=== PATIENT | male | born 1970 | race Caucasian/White ===

== ENCOUNTER 2017-05-16 11:45 | Emergency (ER) | payer OTHER ==
[~2017-05-16] VITALS: Ht 188 cm; Wt 77.5 kg
[~2017-05-16 11:45] MED LIST: BACTDS PO; BUPR300T48 PO; CEPH-443 PO; RISP2TAB93 PO
[2017-05-16 11:47] VITALS: Ht 188 cm; Wt 77.5 kg
[2017-05-16] MEDS ORDERED: SULF1TAB31 PO (12:56)
[2017-05-16] MEDS ORDERED: CEPH-443 PO (12:56)
[2017-05-16] MEDS ORDERED: CEFTRIAXONE 1 GM INJ IM ONE (13:00)
--- NOTE | 2017-05-16 13:13 | ERD ---
ER Documentation Chief Complaint Date/Time DATE: 05/16/17 TIME: 13:11 Chief Complaint bilat lower ext swelling x4days HPI 47-year-old male patient with no significant past medical history presents to the ED complaining of by bilateral lower feet redness that started 4 days ago after walking through the weeds. Reports that he got his feet tangled up in the weeds as he was trying to walk through. States that immediately he felt itching and pain sensation. Denies any chest pain, shortness of breath, wheezing, dyspnea on exertion, orthopnea, nausea, vomiting, fever, decreased sensation, loss of range of motion. Patient is ambulating without difficulty. ROS All systems reviewed and are negative except as per history of present illness. Medications Home Meds Active Scripts Cephalexin* (Keflex*) 500 Mg Capsule, 500 MG PO QID for 7 Days, CAP Prov:TREE MEDEL PA-C 05/16/17 Sulfamethoxazole/Trimethoprim* (Bactrim Ds* Tablet) 1 Each Tablet, 1 TAB PO BID for 7 Days, #14 TAB Prov:TREE MEDEL PA-C 05/16/17 Cephalexin* (Keflex*) 500 Mg Capsule, 500 MG PO QID for 14 Days, CAP Prov:MAGDI SANCHEZ DO 01/10/16 Sulfamethoxazole-Trimethoprim* (Bactrim* DS) 800-160 Mg Tab, 1 TAB PO BID for 14 Days, TAB Prov:MAGDI SANCHEZ DO 01/10/16 Reported Medications Risperidone* (Risperdal*) 2 Mg Tablet, 2 MG PO DAILY, TAB 01/10/16 Bupropion Hcl* (Wellbutrin XL*) 300 Mg Tab.sr.24h, 300 MG PO DAILY, TAB.SA 01/10/16 Allergies Allergies: Coded Allergies: No Known Allergy (Unverified , 01/12/14) PMhx/Soc History of Surgery: No Anesthesia Reaction: No Hx Neurological Disorder: No Hx Respiratory Disorders: No Hx Cardiac Disorders: No Hx Psychiatric Problems: No Hx Miscellaneous Medical Probl: No Hx Alcohol Use: No Hx Substance Use: Yes (heroin) Hx Tobacco Use: No Smoking Status: Never smoker Physical Exam Vitals Vital Signs Date Time Temp Pulse Resp B/P Pulse Ox O2 Delivery O2 Flow Rate FiO2 05/16/17 11:47 98.1 67 20 117/66 98 Physical Exam Const: Gtc-gfy-[id number], well-nourished. In no acute distress. Head: Atraumatic, normocephalic Eyes: Normal Conjunctiva without injection ENT: Normal external ear, nose and mouth. Neck: Full range of motion. No meningismus. Resp: Clear to auscultation bilaterally. No wheezing, rhonchi, rales, or crackles. No accessory muscle use. No retractions. Cardio: Regular rate and rhythm, no murmurs Skin: No petechiae or rashes Back: No midline tenderness. No CVA tenderness. Ext: No cyanosis, or edema. Cap refill less than 2 seconds. Distal pulses intact bilaterally. Bilateral feet erythema up to the ankle region with no edema noted. No purulent discharge. No fluctuance or induration. No bleeding noted. Full range of motion of bilateral lower and upper extremities with flexion extension. Patient is ambulating without difficulty. No lymphatic streaking. Neur: Awake and alert. Normal gait and coordination. Muscle strength 5/5. Sensation intact bilaterally. Psych: Normal Mood and Affect Results 24 hrs Current Medications Medications (Trade) Dose Ordered Sig/Marisela Route PRN Reason Start Time Stop Time Status Last Admin Dose Admin Ceftriaxone Sodium (Rocephin) 1 gm ONCE ONCE IM 05/16/17 13:00 05/16/17 13:01 DC 05/16/17 13:06 Procedures/MDM This is a 47-year-old male patient with a past medical history of abscesses and cellulitis presents to the ED complaining of bilateral feet redness that started 4 days ago. Patient is afebrile and nontoxic-appearing. Patient has normal vital signs. He was given his first dose of ceftriaxone here in the ED with improvement of his symptoms. My supervising physician, Dr. Torrez also evaluated patient at this time who agreed with the management and discharge plan. Patient likely has cellulitis. He is instructed to return to the ED in 2 days for a wound check. Low suspicion for scabies, SJS/TEN, erythema multiforme, sepsis, necrotizing fascitis, gangrene, meningococcemia or other emergent conditions. Patient's extremity symptoms have stabilized while they have been evaluated in the department and are appropriate for outpatient follow up. No evidence of fractures, dislocations, compartment syndrome, neurologic injury, vascular injury, open joint, open fracture, tendon laceration, septic arthritis, osteomyelitis, DVT, foreign body, or other emergent conditions. Discharge medications: Bactrim and Keflex Follow up with primary care physician in 1-2 days. Instructed patient to return to the ED sooner for any worsening symptoms. Patient's questions were answered. Patient understood and agreed with discharge plan. Patient discharged stable. Departure Diagnosis: Primary Impression: Cellulitis of both feet Condition: Stable Patient Instructions: Cellulitis Referrals: [facility] YOU HAVE RECEIVED A MEDICAL SCREENING EXAM AND THE RESULTS INDICATE THAT YOU DO NOT HAVE A CONDITION THAT REQUIRES URGENT TREATMENT IN THE EMERGENCY DEPARTMENT. FURTHER EVALUATION AND TREATMENT OF YOUR CONDITION CAN WAIT UNTIL YOU ARE SEEN IN YOUR DOCTORS OFFICE WITHIN THE NEXT 1-2 DAYS. IT IS YOUR RESPONSIBILITY TO MAKE AN APPOINTMENT FOR FOLOW-UP CARE. IF YOU HAVE A PRIMARY DOCTOR --you should call your primary doctor and schedule an appointment IF YOU DO NOT HAVE A PRIMARY DOCTOR YOU CAN CALL OUR PHYSICIAN REFERRAL HOTLINE AT IF YOU CAN NOT AFFORD TO SEE A PHYSICIAN YOU CAN CHOSE FROM THE FOLLOWING [facility] [address] [address]. [facility] [address] [address] [facility] [address] [facility] [facility] [address] [facility]. [facility]. [address] [facility]. [facility] YOU HAVE RECEIVED A MEDICAL SCREENING EXAM AND THE RESULTS INDICATE THAT YOU DO NOT HAVE A CONDITION THAT REQUIRES URGENT TREATMENT IN THE EMERGENCY DEPARTMENT. FURTHER EVALUATION AND TREATMENT OF YOUR CONDITION CAN WAIT UNTIL YOU ARE SEEN IN YOUR DOCTORS OFFICE WITHIN THE NEXT 1-2 DAYS. IT IS YOUR RESPONSIBILITY TO MAKE AN APPOINTMENT FOR FOLOW-UP CARE. IF YOU HAVE A PRIMARY DOCTOR --you should call your primary doctor and schedule and appointment IF YOU DO NOT HAVE A PRIMARY DOCTOR YOU CAN CALL OUR PHYSICIAN REFERRAL HOTLINE AT . IF YOU CAN NOT AFFORD TO SEE A PHYSICIAN YOU CAN CHOSE FROM THE FOLLOWING [facility]: [facility] [address] [place] [address] [facility] [address] [place] [address] [facility] [address] [place] [address] [facility] URGENT C[facility]/SPECIALTIES Additional Instructions: Follow up in 2 days in your clinic for wound check. Call your primary care doctor for an appointment during the next 2.See the doctor sooner or return here if your condition worsens before your appointment time. TREE MEDEL PA-C May 16, 2017 13:13
== END 2017-05-16 13:35 | disposition home or self-care (01) ==
LOC: FTE 11:45
DX: L03.115 Cellulitis of right lower limb (principal); L03.116 Cellulitis of left lower limb; M79.672 Pain in left foot
CPT/HCPCS: 96372; J0696

== ENCOUNTER 2018-02-09 14:42 | Emergency (ER) | END 2018-02-09 20:30 | disposition left against medical advice (07) ==

== ENCOUNTER 2018-09-23 23:05 | Inpatient (IN) | END 2018-09-25 10:00 | disposition left against medical advice (07) | DRG 872 ==

== ENCOUNTER 2018-09-28 20:28 | Emergency (ER) | END 2018-09-28 21:15 | disposition home or self-care (01) ==

== ENCOUNTER 2019-05-20 18:01 | Emergency (ER) | payer OTHER ==
[~2019-05-20] VITALS: Ht 188 cm; Wt 78.0 kg
[~2019-05-20 18:01] MED LIST changes: +SULF1TAB31 PO
[2019-05-20 18:07] VITALS: BP 123/74; PULSE 64; RESP 18; Ht 188 cm; Wt 78.0 kg
--- NOTE | 2019-05-20 18:35 | ERD ---
ER Documentation Chief Complaint Chief Complaint pt is bib left arm abscess x 6 days ROS All systems reviewed and are negative except as per history of present illness. Medications Home Meds Active Scripts Cephalexin* (Keflex*) 500 Mg Capsule, 500 MG PO QID for 7 Days, CAP Prov:JOSE PEREZ MD 09/28/18 Sulfamethoxazole/Trimethoprim* (Bactrim Ds* Tablet) 1 Each Tablet, 1 TAB PO BID, #14 TAB Prov:JOSE PEREZ MD 09/28/18 Cephalexin* (Keflex*) 500 Mg Capsule, 500 MG PO QID for 7 Days, CAP Prov:TREE MEDEL PA-C 05/16/17 Sulfamethoxazole/Trimethoprim* (Bactrim Ds* Tablet) 1 Each Tablet, 1 TAB PO BID for 7 Days, #14 TAB Prov:TREE MEDEL-Anay 05/16/17 Cephalexin* (Keflex*) 500 Mg Capsule, 500 MG PO QID for 14 Days, CAP Prov:MAGDI SANCHEZ DO 01/10/16 Sulfamethoxazole-Trimethoprim* (Bactrim* DS) 800-160 Mg Tab, 1 TAB PO BID for 14 Days, TAB Prov:MAGDI SANCHEZ DO 01/10/16 Reported Medications Risperidone* (Risperdal*) 2 Mg Tablet, 2 MG PO DAILY, TAB 01/10/16 Bupropion Hcl* (Wellbutrin XL*) 300 Mg Tab.sr.24h, 300 MG PO DAILY, TAB.SA 01/10/16 Allergies Allergies: Coded Allergies: No Known Allergy (Unverified , 01/12/14) PMhx/Soc History of Surgery: No Anesthesia Reaction: No Hx Neurological Disorder: No Hx Respiratory Disorders: No Hx Cardiac Disorders: No Hx Psychiatric Problems: No Hx Miscellaneous Medical Probl: No Hx Alcohol Use: Yes Hx Substance Use: Yes (09/23/18) Hx Tobacco Use: Yes Physical Exam Vitals Vital Signs Date Temp Pulse Resp B/P (MAP) Pulse Ox O2 O2 Flow FiO2 Time Delivery Rate 05/20/19 97.9 64 18 123/74 99 18:07 (90) Physical Exam Const: No acute distress Head: Atraumatic Eyes: Normal Conjunctiva ENT: Normal External Ears, Nose and Mouth. Neck: Full range of motion. No meningismus. Resp: Clear to auscultation bilaterally Cardio: Regular rate and rhythm, no murmurs Abd: Soft, non tender, non distended. Normal bowel sounds Skin: No petechiae or rashes Back: No midline or flank tenderness Ext: No cyanosis, or edema Neur: Awake and alert Psych: Normal Mood and Affect Departure Diagnosis: Primary Impression: Cellulitis of arm, left Condition: Stable Additional Instructions: Thank you very much for allowing us to participate in your care. Your health and safety is our top priority at [facility]. The evaluation in the emergency department has been done to rule out an acute emergency. Chronic, upv-mook-qcbkoijclli conditions may have not been evaluated; therefore, you need to follow up with a primary care provider in the next 48h. If symptoms persist, worsen or new symptoms develop, then patient should return to the ED immediately. Call your primary care doctor TOMORROW for an appointment during the next 2-4 days and bring all the information provided. Have prescriptions filled and follow precisely the directions on the label. If the symptoms get worse and your provider is unavailable, return to the Emergency Department immediately. SHELBIE WRIGHT MD May 20, 2019 18:35
[2019-05-20] MEDS ORDERED: CEPH-443 PO (18:36)
[2019-05-20] MEDS ORDERED: SULF1TAB31 PO (18:36)
== END 2019-05-20 18:37 | disposition home or self-care (01) ==
LOC: E/R 18:01
DX: L03.114 Cellulitis of left upper limb (principal); Z87.891 Personal history of nicotine dependence
CPT/HCPCS: 99283